=== PATIENT | female | born 1955 | race Caucasian/White ===

== ENCOUNTER 2017-05-23 13:33 | Outpatient (CLI) | payer OTHER ==
[2017-05-23] MEDS ORDERED: Iopamidol 370 76% 50 ML VIAL FS ONE (14:04)
[2017-05-23] MEDS ORDERED: Iopamidol 370 76% 100 ML VIAL ONE (14:04)
--- NOTE | 2017-05-23 18:12 | CT ---
CT ABDOMEN AND PELVIS WITH CONTRAST: 05/23/17 Multiple axial tomograms obtained of the abdomen and pelvis with IV enhancement. HISTORY: Right lower quadrant pain. The lung bases are clear. The liver, spleen, and pancreas are unremarkable. Adrenal glands and kidneys are unremarkable. Small bowel loops appear normal. The appendix is enlarged and inflamed. The appendix measures up to 10 mm diameter. There is no eviden ce of appendiceal perforation. No fluid or abscess collection seen. The findings are consistent with acute appendicitis. No free fluid seen. IMPRESSION: Enlarged inflamed appendix consistent with acute appendicitis. Patient is being held in CT. Dr. Azar er is being paged for notification. POS: [facility]
--- NOTE | 2017-05-23 20:56 | HP ---
CHIEF COMPLAINT: Abdominal pain. HISTORY OF PRESENT ILLNESS: This is a 62-year-old female who presents with a history of pain that st arted periumbilical, became more localized in the right lower quadrant associated with nausea, no vom iting associated with anorexia. No change in stools. No history of chronic abdominal pain. No hist ory of inflammatory bowel disease. Pain was described as sharp, 08/10 in the right lower quadrant. No fevers or chills, no sick contacts. Seen by Dr. Hayes and she was sent over for outpatient labs and a CAT scan. CAT scan reveals acute appendicitis without evidence of perforation. PAST MEDICAL HISTORY: She denies. PAST SURGICAL HISTORY: Includes . MEDICINES TAKEN DAILY: None. ALLERGIES: PENICILLIN. SOCIAL HISTORY: No smoking, alcohol, or other drugs. She is . REVIEW OF SYSTEMS: Ten-system review of systems is otherwise negative unless described above. PHYSICAL EXAMINATION: HEENT: Sclerae anicteric. Oropharynx clear. NECK: No lymphadenopathy. CHEST: Clear. HEART: Regular rate and rhythm. ABDOMEN: Soft, tender right lower quadrant, localized guarding. No rebound, no abdominal or inguina l hernias. EXTREMITIES: No ischemia or edema to extremities. IMAGING: CT scan reveals acute appendicitis. ASSESSMENT: Acute appendicitis. PLAN: Laparoscopic appendectomy. Risks, benefits, alternatives were discussed. She gives consent. We will do this today.
== END 2017-05-23 13:34 | disposition home or self-care (01) ==
LOC: CT 13:33
PROVIDERS: ATTEND Family Medicine
DX: R10.31 Right lower quadrant pain (principal)
CPT/HCPCS: 74177

== ENCOUNTER 2017-05-23 16:01 | Day surgery (SDC) | payer OTHER ==
[~2017-05-23 16:01] MED LIST: Dexamethasone 20 MG/5 ML VIAL ONE; Glycopyrrolate 0.2 MG/ML 5 ML SYRINGE ONE; Ketorolac Tromethamine 30 MG/ML VIAL ONE; Lidocaine 1% PF 5 ML VIAL ONE; Ondansetron HCl/PF 4 MG/2 ML Vial ONE; Propofol 200 MG/20 ML VIAL ONE; Succinylcholine Chloride 20 MG/ML 10 ml SYRINGE FS ONE
[2017-05-23] MEDS ORDERED: MEROPENEM 1 GM/50 ML 1 GM in Premix Bag 1 BAG IVPB ONE (17:15)
[2017-05-23] MEDS ORDERED: Bupivacaine/Epinephrine 0.25% 30 ML VIAL ONE (17:23)
[2017-05-23] MEDS ORDERED: Fentanyl 100 MCG/2 ML VIAL ONE (17:58)
--- NOTE | 2017-05-23 21:44 | OP ---
DATE OF PROCEDURE: 05/23/2017 PREOPERATIVE DIAGNOSIS: Acute appendicitis. POSTOPERATIVE DIAGNOSIS: Acute appendicitis. PROCEDURE: Laparoscopic appendectomy. SURGEON: Eddie Paz MD ANESTHESIA: General. ESTIMATED BLOOD LOSS: Minimal. COMPLICATIONS: None. SPECIMEN: Appendix. FINDINGS: Appendicitis. TECHNIQUE: The patient was taken to the operating room and placed supine on the table. After genera l anesthetic was obtained, a Foster was placed. The abdomen was shaved, prepped and draped in a steri le fashion. Curved incision was made below the umbilicus. Cautery was used to dissect down to and s core the fascia. Abdominal cavity was entered bluntly using a Barbara clamp. Holding stitch of PDS wa s placed on each side of the fascia. Wisdom trocar was placed. High-flow pneumoperitoneum was obtai wilber. A suprapubic 5-mm port and a left lower quadrant 5-mm port were placed under direct visualizati on. The cecum was rolled over to reveal acute appendicitis. A small window was made at the base of the appendix and the mesoappendix. Laparoscopic stapler was fired across the base of the appendix. A vascular reload fired across the mesoappendix. Appendix was placed in an Endo catch bag and freddy t out through the Wisdom. One bleeder on the mesenteric staple line was cauterized. There is no santo oing bleeding. The right lower quadrant and pelvis was irrigated using sterile solution. There was no evidence of perforation or damage to any intraabdominal structures. Right lower quadrant and pelv is was irrigated until returns were clear. All port sites were infiltrated using local anesthetic. All ports were removed under camera visualization. Pneumoperitoneum was let down. PDS was used to c lose the fascial defect below the umbilicus. All incisions were irrigated and closed using 4-0 Monoc ryl and Dermabond. The patient was en route to recovery in stable condition. All instrument counts, needle counts, and lap counts were correct.
== END 2017-05-23 20:43 | disposition home or self-care (01) ==
LOC: ERS 16:01 → SDC/OP 17:22
PROVIDERS: ATTEND Surgery
PROC: 0DTJ4ZZ Resection of Appendix, Percutaneous Endoscopic Approach (ICD-10-PCS; principal; 2017-05-23)
DX: K35.80 Unspecified acute appendicitis (principal); Z88.0 Allergy status to penicillin; Z98.890 Other specified postprocedural states
CPT/HCPCS: 88304; 93005; 93010; 99285; J1100; J1885; J2001; J2405; J2704; J3010

== ENCOUNTER 2021-06-14 08:45 | Outpatient (CLI) | payer MEDICARE | END 2021-06-14 08:46 | disposition home or self-care (01) | LOC: BICMAMMO 08:45 | PROVIDERS: ATTEND Family Medicine | DX: Z12.31 Encounter for screening mammogram for malignant neoplasm of breast (principal); N63.15 Unspecified lump in the right breast, overlapping quadrants | CPT/HCPCS: 77063; 77067 ==

== ENCOUNTER 2021-06-19 07:50 | Outpatient (CLI) | payer MEDICARE | END 2021-06-19 07:51 | disposition home or self-care (01) | LOC: BICULT 07:50 | PROVIDERS: ATTEND Family Medicine | DX: R92.8 Other abnormal and inconclusive findings on diagnostic imaging of breast (principal) ==

== ENCOUNTER 2023-10-28 09:14 | Outpatient (CLI) | payer MEDICARE | END 2023-10-28 09:15 | disposition home or self-care (01) | LOC: BICMAMMO 09:14 | PROVIDERS: ATTEND Family Medicine | DX: Z12.31 Encounter for screening mammogram for malignant neoplasm of breast (principal); E28.39 Other primary ovarian failure; N63.10 Unspecified lump in the right breast, unspecified quadrant; N63.20 Unspecified lump in the left breast, unspecified quadrant; M81.0 Age-related osteoporosis without current pathological fracture; Z91.89 Other specified personal risk factors, not elsewhere classified | CPT/HCPCS: 77063; 77067; 77080 ==

== ENCOUNTER 2023-11-06 08:12 | Outpatient (CLI) | payer MEDICARE | END 2023-11-06 08:13 | disposition home or self-care (01) | LOC: BICMAMMO 08:12 | PROVIDERS: ATTEND Family Medicine | DX: N63.10 Unspecified lump in the right breast, unspecified quadrant (principal); N63.20 Unspecified lump in the left breast, unspecified quadrant | CPT/HCPCS: 76642; 77065; G0279 ==